=== PATIENT | female | born 1980 | race Caucasian/White ===

== ENCOUNTER 2024-01-18 20:40 | Emergency (ER) | payer OTHER, SELFPAY ==
[2024-01-18 20:43] VITALS: BP 165/100
--- NOTE | 2024-01-18 22:19 | ED.GENMED ---
History of Present Illness
General
Chief Complaint: Musculo-Skeletal Complaint
Source: patient
Time Seen by Provider: 01/18/24 22:15
Travel History
Have you had any contact with someone who has COVID-19?: No
Do you have any symptoms of coronavirus? Fever > 100 degrees, chills, cough, shortness of breath, sore throat, loss of taste or smell, muscle aches, or headache?: No
History of Present Illness
History of Present Illness:
43-year-old female with no significant past medical history presenting emergency department for evaluation after she got hit in the right hand with a baseball and now with pain along the second metacarpal with swelling in this area. Patient is
right-hand dominant. No other injuries were sustained.
Past History
Past History
ED Past Medical History: None
ED Past Surgical History: None
Social History
Tobacco: Non-smoker
Alcohol: None
Drug: None
Personal:
Living: with family
Employment: Employed
Review of Systems
Review of Systems
All Other Systems: ROS reviewed and negative except as documented in HPI and ROS
Phy Exam
Physical Exam
Physical Exam:
GENERAL: Alert , in no apparent distress
EYE: conjunctiva clear
Head: Normocephalic atraumatic
NECK: Supple,
ENT: mmm.
LUNGS: no acute respiratory distress
NEUROLOGICAL: Alert and oriented
SKIN: Warm and dry, skin intact.
MUSCULOSKELETAL: well perfused. Right hand: Soft tissue swelling in the interdigital webbing space and second/third metacarpal of the right hand noted along the dorsal aspect. Tenderness over this area. Patient is able to make a fist however has
pain while doing so. Extremities otherwise neurovascularly intact.
PSYCH: Normal and appropriate interaction.
Scores
Heart Failure Risk
Heart Failure Risk Score: Not Applicable
Heart Score for Chest Pain Patients
STEMI patient?: Not applicable
Withdrawal Assessment of Alcohol
Withdrawal Assessment Completed?: Not applicable
Course
Orders/Labs/Results
Orders:
Orders
01/18/24 20:45
CR Hand - Right Min 3 Views Urgent
Comment:
Reason For Exam: injury
Vital Signs
Initial and Last Documented VS:
Initial Vital Signs
Temp Pulse Resp BP Pulse Ox
98.0 F 96 18 165/100 99
01/18/24 20:43 01/18/24 20:43 01/18/24 20:43 01/18/24 20:43 01/18/24 20:43
Last Documented Vital Signs
Temp Pulse Resp BP Pulse Ox
98.0 F 96 18 165/100 99
01/18/24 20:43 01/18/24 20:43 01/18/24 20:43 01/18/24 20:43 01/18/24 20:43
MDM/Problems Addressed
Differential Diagnosis Includes:
Contusion, fracture, sprain
MDM/Problems Addressed:
X-ray of the right hand ordered in triage shows no acute fracture. Offered Motrin/Tylenol however patient declines. I also offered an Sky wrap or splint which patient also declined. Advised ice and elevation. Otherwise stable for discharge home
and outpatient management as needed.
*Radiology
Radiology exam reviewed: preliminary read by ED provider (No acute fracture of the right hand)
*Pulse Oximetry
Patient hypoxic: no
*Critical Care Note
Total Time (30-74mins, 75-104mins- exclusive of procedures): Not Applicable
ED Attending Note
-
Portions of this chart may have been created with voice recognition software.� Occasional wrong word or��sound alike� substitutions may have occurred due to the inherent limitations of voice recognition software.
Discharge Plan
Departure
Patient Disposition: Home (Routine Discharge)
Date of Disposition: 01/18/24
Time of Disposition: 22:19
Patient with high blood pressure during this ER visit?: Yes
Discharge Problem:
Contusion of hand, right
Instructions: Contusion (DC)
Prescriptions:
No Action
oxycodone-acetaminophen 5 MG/325 MG tablet
1 - 2 tab PO Q4HPRN PRN (Reason: pain) Qty: 25 0RF
phenazopyridine 200 MG tablet
200 mg PO TID Qty: 6 0RF
sulfamethoxazole-trimethoprim 800 MG/160 MG tablet
1 tab PO BID Qty: 10 0RF
Referrals:
NONE,* [Active] -
Interventions
Interventions:
*Risk Screen - Suicide Last Done: 01/18/24 20:43
*General Assessment Last Done: 01/18/24 20:43
*Neglect/Abuse Screening Last Done: 01/18/24 20:43
*Nursing Disposition Last Done: 01/18/24 22:24
ED-Musculoskeletal Assessment Last Done: 01/18/24 22:05
Discharge Date and Time
Discharge Date/Time: 01/18/24 22:26
Print Language: ROMANSH
== END 2024-01-18 22:26 | disposition home or self-care (01) ==
LOC: EMR 20:40
PROVIDERS: EMERGENCY PHYSICIAN Student in an Organized Health Care Education/Training Program
DX: S60.221A Contusion of right hand, initial encounter (principal); W21.03XA Struck by baseball, initial encounter; R03.0 Elevated blood-pressure reading, without diagnosis of hypertension
CPT/HCPCS: 99283; 73130